=== PATIENT | female | born 1940 ===

== ENCOUNTER → 2021-04-24 | Outpatient (CLI) | payer MEDICARE | LOC: LAB 08:30 → LAB SHORT 08:30 | DX: R35.0 Frequency of micturition (principal) | CPT/HCPCS: 87077; 87086; 87186 ==

== ENCOUNTER → 2024-01-19 | Outpatient (CLI) | payer OTHER | END | disposition home or self-care (01) | LOC: LAB SHORT 17:56 → LAB 17:56 | DX: N39.0 Urinary tract infection, site not specified (principal) | CPT/HCPCS: 87077; 87086; 87186 ==

== ENCOUNTER → 2025-04-04 | Outpatient (CLI) | payer OTHER | LOC: LAB 17:05 → LAB SHORT 17:05 | DX: R30.0 Dysuria (principal) | CPT/HCPCS: 87086 ==